=== PATIENT | male | born 1960 | race African-American/Black ===

== ENCOUNTER 2016-12-16 12:37 | Inpatient (IN) | payer MEDICARE, MEDICAID ==
[~2016-12-16] VITALS: Ht 203.2 cm; Wt 86.2 kg
--- NOTE | 2016-12-16 12:41 | Emergency Room Report ---
History of Present Illness General Source: Patient, EMS Present Illness HPI 55-year-old male with possible history of autism, hypertension, asthma per review of other charts, coming from work for reportedly presyncopal episode. EMS stated that patient was hypotensive in the field, with systolic 80, got 250 mL of normal saline and systolic went up to 90s. Patient is currently only oriented to person, unknown other baseline mental status, however patient is following all commands appropriately. Currently only complaining of some lightheadedness otherwise no fever chills nausea abdominal pain chest pain or shortness of breath Allergies: Coded Allergies: No Known Allergies (Unverified , 12/16/16) Patient History Past Medical History: see triage record Past Surgical History: unable to obtain Pertinent Family History: unable to obtain Reviewed Nursing Documentation: PMH: Agreed, PSxH: Agreed Review of Systems All Other Systems: negative except mentioned in HPI Physical Exam Sp02 EP Interpretation: reviewed, normal General Appearance: no apparent distress, alert, non-toxic, other - poor historian, however nad Head: normocephalic, atraumatic Eyes: bilateral eye normal inspection, bilateral eye PERRL, bilateral eye EOMI ENT: normal ENT inspection, normal pharynx, normal voice, moist mucus membranes Neck: normal inspection, full range of motion, supple Respiratory: normal inspection, lungs clear, normal breath sounds, no respiratory distress, no retraction, no wheezing, speaking full sentences, chest symmetrical Cardiovascular #1: normal inspection, regular rate, rhythm, no edema, normal capillary refill Cardiovascular #2: 2+ radial (R), 2+ radial (L) Gastrointestinal: normal inspection, non tender, soft, non-distended, no guarding Genitourinary: no CVA tenderness Musculoskeletal: normal inspection, back normal, normal range of motion, non- tender Neurologic: normal inspection, alert, responsive, tabulating supervisor III-XII nml as tested, motor strength/tone normal, sensory intact, speech normal, other - oritned to person/place,?autism Psychiatric: mood/affect normal, other - poor historian Skin: normal inspection, normal color, no rash, warm/dry, well hydrated, normal turgor Medical Decision Making Diagnostic Impression: Primary Impression: Syncope Additional Impressions: Mild renal insufficiency Rhabdomyolysis ER Course 55-year-old male with pre-syncopal episode/lightheadedness DDX Vasovagal vs. orthostatic / hypovolemic/dehydration vs. cardiac arrhythmia (SVT , Afib) vs. cardiac (, ACS) vs. PE vs. metabolic (hypoglycemia, hypoxia), vs neuro (seizure, CVA, intracranial bleed) Plan: cbc, bmp, ekg, cxr consider IVF At this time, patient is neurologically intact with the exception of being a poor historian. No neurological findings on exam. There was no history of trauma, loss of consciousness, and there are no signs of trauma, will not perform CT head for now ER course: Patient has remained stable during ED stay. No further syncopal episodes Disposition: Patient requires admission to telemetry. Patient requires further workup of syncopal episode, further lab testing, serial troponins, cardiac monitoring D/W hospitalist Patient was signed out to Dr Medel, who has accepted patient for admission. Please note that this Emergency Department Report was dictated using [email or web address] software, occasionally this can lead to erroneous entry secondary to interpretation by the dictation equipment EKG Diagnostic Results EP Interpretation: Yes Rate: normal Rhythm: NSR ST Segments: T wave flattening V5 V6, TWI III, , no WPW, Brugada, QT prolongation ASA given to patient: No Rhythm Strip EP Interpretation: Yes Rate: 75 Rhythm: NSR, no PVCs, no ectopy Chest X-ray CXR: Ordered: Yes 1 view Indication: Syncope EP interpretation: Yes Interpretation: mild pulm vasc congestion Impression: mild CHF Electronically signed by Balaji Burroughs MD Labs Test 12/16/16 13:00 12/16/16 13:55 12/17/16 06:50 White Blood Count 4.8 K/UL (4.8-10.8) 4.7 K/UL (4.8-10.8) Red Blood Count 4.38 M/UL (4.70-6.10) 4.29 M/UL (4.70-6.10) Hemoglobin 14.2 G/DL (14.2-18.0) 14.2 G/DL (14.2-18.0) Hematocrit 41.7 % (42.0-52.0) 40.6 % (42.0-52.0) Mean Corpuscular Volume 95 FL (80-99) 95 FL (80-99) Mean Corpuscular Hemoglobin 32.5 PG (27.0-31.0) 33.2 PG (27.0-31.0) Mean Corpuscular Hemoglobin Concent 34.1 G/DL (32.0-36.0) 35.0 G/DL (32.0-36.0) Red Cell Distribution Width 11.4 % (11.6-14.8) 11.4 % (11.6-14.8) Platelet Count 196 K/UL (150-450) 172 K/UL (150-450) Mean Platelet Volume 6.6 FL (6.5-10.1) 6.3 FL (6.5-10.1) Neutrophils (%) (Auto) 63.3 % (45.0-75.0) 67.3 % (45.0-75.0) Lymphocytes (%) (Auto) 26.5 % (20.0-45.0) 22.8 % (20.0-45.0) Monocytes (%) (Auto) 8.4 % (1.0-10.0) 7.8 % (1.0-10.0) Eosinophils (%) (Auto) 1.1 % (0.0-3.0) 2.0 % (0.0-3.0) Basophils (%) (Auto) 0.6 % (0.0-2.0) 0.2 % (0.0-2.0) Sodium Level 145 MMOL/L (136-145) 143 MMOL/L (136-145) Potassium Level 3.2 MMOL/L (3.5-5.1) 3.6 MMOL/L (3.5-5.1) Chloride Level 110 MMOL/L (98-107) 111 MMOL/L (98-107) Carbon Dioxide Level 28 MMOL/L (21-32) 28 MMOL/L (21-32) Anion Gap 7 mmol/L (5-15) 4 mmol/L (5-15) Blood Urea Nitrogen 26 mg/dL (7-18) 17 mg/dL (7-18) Creatinine 1.8 MG/DL (0.55-1.30) 0.9 MG/DL (0.55-1.30) Estimat Glomerular Filtration Rate 47.9 mL/min (>60) > 60 mL/min (>60) Glucose Level 90 MG/DL (74-106) 101 MG/DL (74-106) Calcium Level 8.8 MG/DL (8.5-10.1) 8.5 MG/DL (8.5-10.1) Total Bilirubin 0.6 MG/DL (0.2-1.0) 0.5 MG/DL (0.2-1.0) Aspartate Amino Transf (AST/SGOT) 23 U/L (15-37) 22 U/L (15-37) Alanine Aminotransferase (ALT/SGPT) 22 U/L (12-78) 25 U/L (12-78) Alkaline Phosphatase 66 U/L (46-116) 67 U/L (46-116) Total Creatine Kinase 643 U/L (26-308) Creatine Kinase MB 1.9 NG/ML (0.0-3.6) Creatine Kinase MB Relative Index 0.2 Troponin I 0.000 ng/mL (0.000-0.056) Total Protein 6.2 G/DL (6.4-8.2) 5.8 G/DL (6.4-8.2) Albumin 3.3 G/DL (3.4-5.0) 2.9 G/DL (3.4-5.0) Globulin 2.9 g/dL 2.9 g/dL Albumin/Globulin Ratio 1.1 (1.0-2.7) 1.0 (1.0-2.7) Salicylates Level < 1 mg/dL (10-30) Acetaminophen Level < 10 MCG/ML (10-30) Serum Alcohol < 3 mg/dL Urine Color Brown Urine Appearance Slightly cloudy Urine pH 5 (4.5-8.0) Urine Specific [place] 1.020 (1.005-1.035) Urine Protein 3+ (NEGATIVE) Urine Glucose (UA) Negative (NEGATIVE) Urine Ketones Negative (NEGATIVE) Urine Occult Blood 2+ (NEGATIVE) Urine Nitrite Negative (NEGATIVE) Urine Bilirubin 1+ (NEGATIVE) Urine Ictotest Negative Urine Urobilinogen 1 MG/DL (0.0-1.0) Urine Leukocyte Esterase 1+ (NEGATIVE) Urine RBC 2-4 /HPF (0 - 0) Urine WBC 2-4 /HPF (0 - 0) Urine Squamous Epithelial Cells Few /LPF (NONE/OCC) Urine Amorphous Sediment Few /LPF (NONE) Urine Bacteria Few /HPF (NONE) Urine Opiates Screen Negative (NEGATIVE) Urine Barbiturates Screen Negative (NEGATIVE) Phencyclidine (PCP) Screen Negative (NEGATIVE) Urine Amphetamines Screen Negative (NEGATIVE) Urine Benzodiazepines Screen Negative (NEGATIVE) Urine Cocaine Screen Negative (NEGATIVE) Urine Marijuana (THC) Screen Negative (NEGATIVE) Prothrombin Time 10.0 SEC (9.30-11.50) Prothromb Time International Ratio 1.0 (0.9-1.1) Activated Partial Thromboplast Time 28 SEC (23-33) Triglycerides Level 27 MG/DL (0-200) Cholesterol Level 93 MG/DL (< 200) LDL Cholesterol 40 mg/dL (<100) HDL Cholesterol 55 MG/DL (40-60) Cholesterol/HDL Ratio 1.7 (3.3-4.4) Thyroid Stimulating Hormone (TSH) 0.558 uiU/mL (0.360-3.740) Balaji Burroughs M.D. Dec 16, 2016 12:41
[2016-12-16 13:26] LABS: BASOPHILS % (AUTO) 0.6 % (0.0-2.0); EOSINOPHILS % (AUTO) 1.1 % (0.0-3.0); LYMPHOCYTES % (AUTO) 26.5 % (20.0-45.0); MEAN CORPUSCULAR HEMOGLOBIN 32.5 PG (27.0-31.0); MEAN CORPUSCULAR HGB CONC 34.1 G/DL (32.0-36.0); MEAN CORPUSCULAR VOLUME 95 FL (80-99); MEAN PLATELET VOLUME 6.6 FL (6.5-10.1); MONOCYTES % (AUTO) 8.4 % (1.0-10.0); NEUTROPHILS % (AUTO) 63.3 % (45.0-75.0); PLATELET COUNT 196 K/UL (150-450); RED BLOOD COUNT 4.38 M/UL (4.70-6.10); RED CELL DISTRIBUTION WIDTH 11.4 % (11.6-14.8); WHITE BLOOD COUNT 4.8 K/UL (4.8-10.8)
[2016-12-16 13:27] VITALS: BP 97/63
[2016-12-16 13:39] LABS: ALANINE AMINOTRANSFERASE 22 U/L (12-78); ALBUMIN/GLOBULIN RATIO 1.1 (1.0-2.7); ANION GAP 7 mmol/L (5-15); ASPARTATE AMINO TRANSFERASE 23 U/L (15-37); CALCIUM 8.8 MG/DL (8.5-10.1); CARBON DIOXIDE 28 MMOL/L (21-32); CHLORIDE 110 MMOL/L (98-107); CKMB 1.9 NG/ML (0.0-3.6); CREATININE 1.8 MG/DL (0.55-1.30); GLOMERULAR FILTRATION RATE 47.9 mL/min (>60); POTASSIUM 3.2 MMOL/L (3.5-5.1); SODIUM 145 MMOL/L (136-145); TOTAL PROTEIN 6.2 G/DL (6.4-8.2)
[2016-12-16 13:40] LABS: ACETAMINOPHEN < 10 MCG/ML (10-30); ALCOHOL < 3 mg/dL
[2016-12-16] MEDS ORDERED: LORazepam Inj 2mg/ml 1ml IV ONE (13:45)
[2016-12-16] MEDS ORDERED: Mylanta II UD 30ml ORAL PRN (14:15)
[2016-12-16] MEDS ORDERED: Albuterol/Ipratropium 3ml neb HHN PRN (14:15)
[2016-12-16] MEDS ORDERED: Nitroglycerin Subl 0.4mg tab SL PRN (14:15)
[2016-12-16] MEDS ORDERED: LORazepam Inj 2mg/ml 1ml IV PRN (14:15)
[2016-12-16] MEDS ORDERED: Morphine Sulfate 2mg/ml Inj IVP PRN (14:15)
[2016-12-16] MEDS ORDERED: Miralax 17gm pkt ORAL PRN (14:15)
[2016-12-16 14:38] LABS: APPEARANCE,URINE SLIGHTLY CLOUDY; KETONES,URINE NEGATIVE (NEGATIVE); LEUKOCYTE ESTERASE ,URINE 1+ (NEGATIVE); NITRITE,URINE NEGATIVE (NEGATIVE); PH,URINE 5 (4.5-8.0); PROTEIN,URINE 3+ (NEGATIVE); UROBILINOGEN,URINE 1 MG/DL (0.0-1.0)
--- NOTE | 2016-12-16 14:38 | Diagnostic Imaging Report ---
Indication: PAIN Technique: One view of the chest Comparison: none Findings: Lungs and pleural spaces are clear. Heart size is upper limits normal. There is some left basilar atelectasis Impression: No acute process
[2016-12-16] MEDS ORDERED: BENAZEPRIL HCL10 MG ORAL (14:46)
[2016-12-16] MEDS ORDERED: LIPITOR80 MG ORAL (14:46)
[2016-12-16] MEDS ORDERED: OXYTROL1 EACH TD (14:46)
[2016-12-16] MEDS ORDERED: AMLODIPINE BES2.5 MG ORAL (14:46)
[2016-12-16] MEDS ORDERED: TAMSULOSIN HCL0.4 MG ORAL (14:46)
[2016-12-16] MEDS ORDERED: ASPIR 8181 MG ORAL (14:46)
[2016-12-16 14:54] LABS: AMORPHOUS SEDIMENT,UR FEW /LPF; BACTERIA,URINE FEW /HPF; ICTOTEST NEGATIVE; SQUAMOUS EPITHELIAL CELL,UR FEW /LPF (NONE/OCC)
[2016-12-16 15:09] VITALS: BP 108/71
[2016-12-16 18:08] VITALS: BP 113/82
[2016-12-16] MEDS ORDERED: PROSCAR5 MG ORAL (19:00)
[2016-12-16 19:26] VITALS: BP 118/75
[2016-12-16 20:00] VITALS: BP 126/76
[2016-12-16] MEDS: Heparin 5000 units/ml inj SUBQ SCH (20:57)
[2016-12-16] MEDS: Tamsulosin 0.4mg cap ORAL SCH (22:12)
[2016-12-17] VITALS: BP 127/80
[2016-12-17 04:00] VITALS: BP 136/87
[2016-12-17 08:00] VITALS: BP 125/82
[2016-12-17 08:14] LABS: BASOPHILS % (AUTO) 0.2 % (0.0-2.0); LYMPHOCYTES % (AUTO) 22.8 % (20.0-45.0); MEAN CORPUSCULAR HEMOGLOBIN 33.2 PG (27.0-31.0); MEAN CORPUSCULAR VOLUME 95 FL (80-99); MEAN PLATELET VOLUME 6.3 FL (6.5-10.1); MONOCYTES % (AUTO) 7.8 % (1.0-10.0); NEUTROPHILS % (AUTO) 67.3 % (45.0-75.0); PLATELET COUNT 172 K/UL (150-450); RED BLOOD COUNT 4.29 M/UL (4.70-6.10); RED CELL DISTRIBUTION WIDTH 11.4 % (11.6-14.8); WHITE BLOOD COUNT 4.7 K/UL (4.8-10.8)
[2016-12-17 08:36] LABS: ALANINE AMINOTRANSFERASE 25 U/L (12-78); ANION GAP 4 mmol/L (5-15); ASPARTATE AMINO TRANSFERASE 22 U/L (15-37); CALCIUM 8.5 MG/DL (8.5-10.1); CARBON DIOXIDE 28 MMOL/L (21-32); CHLORIDE 111 MMOL/L (98-107); CHOLESTEROL 93 MG/DL (< 200); CHOLESTEROL/HDL RATIO 1.7 (3.3-4.4); CREATININE 0.9 MG/DL (0.55-1.30); GLOMERULAR FILTRATION RATE > 60 mL/min (>60); POTASSIUM 3.6 MMOL/L (3.5-5.1); SODIUM 143 MMOL/L (136-145); THYROID STIMULATING HORMONE 0.558 uiU/mL (0.360-3.740); TOTAL PROTEIN 5.8 G/DL (6.4-8.2)
[2016-12-17 11:46] VITALS: BP 128/95
[2016-12-17] MEDS: Aspirin EC 81mg tab ORAL SCH (11:48)
[2016-12-17] MEDS: Heparin 5000 units/ml inj SUBQ SCH ×2 (11:51→20:40)
--- NOTE | 2016-12-17 14:58 | Neurology Progress Note ---
Objective Physical Exam Last Vital Signs Date Time Temp Pulse Resp B/P (MAP) Pulse Ox O2 Delivery O2 Flow Rate FiO2 12/17/16 11:46 97.5 69 18 128/95 97 Room Air Laboratory Tests Test 12/17/16 06:50 White Blood Count 4.7 K/UL (4.8-10.8) L Red Blood Count 4.29 M/UL (4.70-6.10) L Hemoglobin 14.2 G/DL (14.2-18.0) Hematocrit 40.6 % (42.0-52.0) L Mean Corpuscular Volume 95 FL (80-99) Mean Corpuscular Hemoglobin 33.2 PG (27.0-31.0) H Mean Corpuscular Hemoglobin Concent 35.0 G/DL (32.0-36.0) Red Cell Distribution Width 11.4 % (11.6-14.8) L Platelet Count 172 K/UL (150-450) Mean Platelet Volume 6.3 FL (6.5-10.1) L Neutrophils (%) (Auto) 67.3 % (45.0-75.0) Lymphocytes (%) (Auto) 22.8 % (20.0-45.0) Monocytes (%) (Auto) 7.8 % (1.0-10.0) Eosinophils (%) (Auto) 2.0 % (0.0-3.0) Basophils (%) (Auto) 0.2 % (0.0-2.0) Prothrombin Time 10.0 SEC (9.30-11.50) Prothromb Time International Ratio 1.0 (0.9-1.1) Activated Partial Thromboplast Time 28 SEC (23-33) Sodium Level 143 MMOL/L (136-145) Potassium Level 3.6 MMOL/L (3.5-5.1) Chloride Level 111 MMOL/L (98-107) H Carbon Dioxide Level 28 MMOL/L (21-32) Anion Gap 4 mmol/L (5-15) L Blood Urea Nitrogen 17 mg/dL (7-18) Creatinine 0.9 MG/DL (0.55-1.30) Estimat Glomerular Filtration Rate > 60 mL/min (>60) Glucose Level 101 MG/DL (74-106) Calcium Level 8.5 MG/DL (8.5-10.1) Total Bilirubin 0.5 MG/DL (0.2-1.0) Aspartate Amino Transf (AST/SGOT) 22 U/L (15-37) Alanine Aminotransferase (ALT/SGPT) 25 U/L (12-78) Alkaline Phosphatase 67 U/L (46-116) Total Protein 5.8 G/DL (6.4-8.2) L Albumin 2.9 G/DL (3.4-5.0) L Globulin 2.9 g/dL Albumin/Globulin Ratio 1.0 (1.0-2.7) Triglycerides Level 27 MG/DL (0-200) Cholesterol Level 93 MG/DL (< 200) LDL Cholesterol 40 mg/dL (<100) HDL Cholesterol 55 MG/DL (40-60) Cholesterol/HDL Ratio 1.7 (3.3-4.4) L Thyroid Stimulating Hormone (TSH) 0.558 uiU/mL (0.360-3.740) Impression/Recommendations Recommendations # [id number] MARK HILLS Dec 17, 2016 14:57
--- NOTE | 2016-12-17 15:28 | Consultation ---
Consult Note Assessment/Plan Renal consult dictated # [id number] HOWARD AMBROCIO Dec 17, 2016 15:28
[2016-12-17 15:32] VITALS: BP 132/93
[2016-12-17 20:29] VITALS: BP 143/86
--- NOTE | 2016-12-17 20:34 | Cardiology Progress Note ---
Assessment/Plan Assessment/Plan [id number] Objective Last 24 Hour Vital Signs Date Time Temp Pulse Resp B/P (MAP) Pulse Ox O2 Delivery O2 Flow Rate FiO2 12/17/16 20:29 97.9 63 20 143/86 97 Room Air 12/17/16 16:00 67 12/17/16 15:32 97.2 67 18 132/93 96 Room Air 12/17/16 12:00 64 12/17/16 11:46 97.5 69 18 128/95 97 Room Air 12/17/16 08:00 97.7 80 18 125/82 95 Room Air 12/17/16 08:00 82 12/17/16 04:00 74 12/17/16 04:00 97.5 76 20 136/87 96 Room Air 12/17/16 00:00 97.3 68 20 127/80 96 Room Air 12/17/16 00:00 68 Intake and Output 12/17/16 12/18/16 19:00 07:00 Intake Total 2300 ml Output Total 2050 ml Balance 250 ml Intake Oral 1400 ml Other 900 ml Output Urine Total 2050 ml Laboratory Tests Test 12/17/16 06:50 White Blood Count 4.7 K/UL (4.8-10.8) L Red Blood Count 4.29 M/UL (4.70-6.10) L Hemoglobin 14.2 G/DL (14.2-18.0) Hematocrit 40.6 % (42.0-52.0) L Mean Corpuscular Volume 95 FL (80-99) Mean Corpuscular Hemoglobin 33.2 PG (27.0-31.0) H Mean Corpuscular Hemoglobin Concent 35.0 G/DL (32.0-36.0) Red Cell Distribution Width 11.4 % (11.6-14.8) L Platelet Count 172 K/UL (150-450) Mean Platelet Volume 6.3 FL (6.5-10.1) L Neutrophils (%) (Auto) 67.3 % (45.0-75.0) Lymphocytes (%) (Auto) 22.8 % (20.0-45.0) Monocytes (%) (Auto) 7.8 % (1.0-10.0) Eosinophils (%) (Auto) 2.0 % (0.0-3.0) Basophils (%) (Auto) 0.2 % (0.0-2.0) Prothrombin Time 10.0 SEC (9.30-11.50) Prothromb Time International Ratio 1.0 (0.9-1.1) Activated Partial Thromboplast Time 28 SEC (23-33) Sodium Level 143 MMOL/L (136-145) Potassium Level 3.6 MMOL/L (3.5-5.1) Chloride Level 111 MMOL/L (98-107) H Carbon Dioxide Level 28 MMOL/L (21-32) Anion Gap 4 mmol/L (5-15) L Blood Urea Nitrogen 17 mg/dL (7-18) Creatinine 0.9 MG/DL (0.55-1.30) Estimat Glomerular Filtration Rate > 60 mL/min (>60) Glucose Level 101 MG/DL (74-106) Calcium Level 8.5 MG/DL (8.5-10.1) Total Bilirubin 0.5 MG/DL (0.2-1.0) Aspartate Amino Transf (AST/SGOT) 22 U/L (15-37) Alanine Aminotransferase (ALT/SGPT) 25 U/L (12-78) Alkaline Phosphatase 67 U/L (46-116) Total Protein 5.8 G/DL (6.4-8.2) L Albumin 2.9 G/DL (3.4-5.0) L Globulin 2.9 g/dL Albumin/Globulin Ratio 1.0 (1.0-2.7) Triglycerides Level 27 MG/DL (0-200) Cholesterol Level 93 MG/DL (< 200) LDL Cholesterol 40 mg/dL (<100) HDL Cholesterol 55 MG/DL (40-60) Cholesterol/HDL Ratio 1.7 (3.3-4.4) L Thyroid Stimulating Hormone (TSH) 0.558 uiU/mL (0.360-3.740) MARI BENITEZ Dec 17, 2016 20:34
[2016-12-17] MEDS: Tamsulosin 0.4mg cap ORAL SCH (20:40)
[2016-12-17] MEDS ORDERED: Morphine Sulfate 4mg/ml Inj IVP PRN (20:45)
--- NOTE | 2016-12-17 21:00 | Consultation ---
DATE OF CONSULTATION: 12/17/2016 NEUROLOGICAL CONSULTATION CONSULTING PHYSICIAN: Carl Balderas M.D. ATTENDING PHYSICIAN: Binh Hammond M.D. REQUESTING PHYSICIAN: Binh Hammond M.D. REASON FOR CONSULTATION: This is a 55-year-old man who is seen in neurological consultation to evaluate transient episode of unresponsiveness. HISTORY OF PRESENT ILLNESS: According to the patient, but predominantly from his family members who were present during this examination, noted that he was at his work place where he had an episode of losing consciousness and falling down. There was no evidence of convulsion. No tongue biting. No urine or bowel incontinence. Paramedics were called to the scene, found him hypotensive with systolic around 80s, he was stabilized with normal saline transfusion, brought to emergency room where he was oriented only to the person, and had no recollection of event. He was complaining of some lightheadedness. According to the family, this occurred on one occasion, never had episodes of loss of consciousness. No seizures. His laboratory studies included normal CBC, normal coagulation panel. Urinalysis, 2+ blood, 3+ protein. Toxicology panel was negative. Chemistry panel with elevated BUN of 26, creatinine 1.8. CPK 643. Albumin 3.3. Normal TSH and lipid panel. His imaging studies included chest x-ray with no evidence of acute process. His carotid duplex, no hemodynamically significant lesions detected. There were no changes in level of consciousness since admission until present time. PAST MEDICAL HISTORY: The patient has history of hypertension and bronchial asthma. He is autistic and has cognitive deficiency. CURRENT MEDICATIONS: Treatment prior to this admission included amlodipine, aspirin, atorvastatin, benazepril, Proscar, oxybutynin, and tamsulosin. ALLERGIES: None reported. SOCIAL HISTORY: Lives with his nephew. He attended a workshop for rehabilitation. No alcohol. No drug abuse. Nonsmoker. The patient has good appetite and has normal balance. FAMILY HISTORY: Unavailable. REVIEW OF SYMPTOMS: The patient indicates he is feeling well. He has no complaint. PHYSICAL EXAMINATION: GENERAL: Well-developed and well-nourished man, not in acute distress, lying comfortably in bed listening to music. His aunt at bedside. VITAL SIGNS: His vital signs are now stable. He is afebrile. Blood pressure 128/95. HEENT: Head normocephalic. There is no evidence of trauma. Eyes, ears, nose, and throat are clear. NECK: Supple. No meningeal signs. MUSCULOSKELETAL: Examination unremarkable. There are no deformities. Peripheral pulses 1+, symmetric. MENTAL STATUS: He is alert and oriented to his name and age, but not place or time. Unable to provide with medical history, but he is able to follow simple commands. CRANIAL NERVE II: Pupils both responding to light and accommodation. Extraocular movement intact. No nystagmus. CRANIAL NERVE V: Normal corneal responses. CRANIAL NERVE VII: No facial asymmetry. CRANIAL NERVE VIII: Grossly normal hearing. CRANIAL NERVES IX THROUGH XII: Within normal limits. MOTOR EXAMINATION: Normal muscle tone. Strength 5/5 in all extremities. No involuntary movement. Deep tendon reflexes 1+, symmetric with downgoing toes on both sides. SENSORY EXAMINATION: Normal to pinprick and light touch. Gait is stable. IMPRESSION: 1. History of syncope, vasovagal type. No evidence of seizure activity. No evidence of transient ischemic attack. 2. Hypertension. 3. Hyperlipidemia. 4. Autism, with significant cognitive loss. RECOMMENDATION: 1. The patient encouraged to have proper p.o. hydration. 2. Continue with physical conditioning. 3. Continue with aspirin and statins. 4. Recheck orthostatic blood pressure. Thank you for allowing me to see this interesting patient in neurological consultation. Carl Balderas M.D. DR: Case JOB#: [id number] CC:
--- NOTE | 2016-12-17 21:10 | Cardiology Report ---
APPROVED REPORT EXAM: Two-dimensional and M-mode echocardiogram with Doppler and color Doppler. INDICATION Syncope M-Mode DIMENSIONS IVSd1.4 (0.7-1.1cm)Left Atrium (MM)2.9 (1.6-4.0cm) LVDd4.5 (3.5-5.6cm)Aortic Root3.5 (2.0-3.7cm) PWd0.9 (0.7-1.1cm) IVSs2.1 cm LVDs2.9 (2.5-4.0cm) PWs1.5 cm Normal left ventricular chamber size, systolic function and wall motion. Left ventricular ejection fraction estimated to be 55-60 %. Mild to moderate left ventricular hypertrophy. Anterior Echo-free space, may be due to pericardial fat or effusion. All other cardiac chamber sizes are within normal limits. Focal aortic valve sclerosis with adequate cusp excursion. Thickened mitral valve leaflets with normal excursion. Mitral annulus and aortic root calcification. Normal pulmonic valve structure. Normal tricuspid valve structure. IVC at normal size with physiologic collapse. A color flow and spectral Doppler study was performed and revealed: Trace mitral regurgitation. Mitral diastolic velocities suggest reduced left ventricular relaxation c/w mild LV diastolic dysfunction (Grade I ). Trace to mild tricuspid regurgitation. Tricuspid systolic velocities suggests peak right ventricular systolic pressure of 30 mmHg. Mild pulmonic regurgitation present.
[2016-12-18 00:22] VITALS: BP 150/90
[2016-12-18 04:00] VITALS: BP 145/88
--- NOTE | 2016-12-18 07:40 | Cardiology Progress Note ---
Assessment/Plan Assessment/Plan syncope hypotension hs of htn autism bp nwo elevated now off ivf tele reviewed neg orthostatic vital to be documented priro to dc home bp med as per dr christy echo reviewed personally good lv function no evidence for sig structural heart disease ok to dc home if not orthostatic Subjective Cardiovascular: Denies: chest pain, lightheadedness, palpitations Respiratory: Denies: shortness of breath Gastrointestinal/Abdominal: Denies: abdominal pain Genitourinary: Denies: burning Objective Last 24 Hour Vital Signs Date Time Temp Pulse Resp B/P (MAP) Pulse Ox O2 Delivery O2 Flow Rate FiO2 12/18/16 04:00 61 12/18/16 04:00 97.9 63 18 145/88 98 Room Air 12/18/16 00:22 98.0 61 19 150/90 99 Room Air 12/18/16 00:00 62 12/17/16 20:29 97.9 63 20 143/86 97 Room Air 12/17/16 20:00 64 12/17/16 16:00 67 12/17/16 15:32 97.2 67 18 132/93 96 Room Air 12/17/16 12:00 64 12/17/16 11:46 97.5 69 18 128/95 97 Room Air 12/17/16 08:00 97.7 80 18 125/82 95 Room Air 12/17/16 08:00 82 General Appearance: no apparent distress, alert Neck: supple Cardiovascular: normal rate, regular rhythm Respiratory/Chest: lungs clear, normal breath sounds Abdomen: normal bowel sounds, non tender, soft Extremities: no swelling MARI BENITEZ Dec 18, 2016 07:40
[2016-12-18 08:30] VITALS: BP 121/85
--- NOTE | 2016-12-18 08:31 | History and Physical Report ---
DATE OF ADMISSION: 12/16/2016 CHIEF COMPLAINT: The patient passed out at work. HISTORY OF PRESENT ILLNESS: This is a 55-year-old male with history of autism, who has been my patient for many years now. The patient has also history of hypertension, asthma, and BPH. The patient was attending a training center where he passed out on the day of admission. The details were somewhat sketchy since the patient is not able to provide much history, but he does say that he was somewhat dizzy and when the paramedics came, his systolic blood pressure was in the 80s. He received normal saline 200 mL IV and blood pressure went up to 90s. The patient was seen in the emergency room here at [facility] and was found to have also acute renal failure with creatinine of 1.8. PAST MEDICAL HISTORY: History of BPH. MEDICATIONS: Reviewed and reconciled in the EMR. ALLERGIES: No known drug allergies. SOCIAL HISTORY: The patient lives at home. He has a very supportive family. No history of smoking or alcohol abuse. REVIEW OF SYSTEMS: Noncontributory except above. PHYSICAL EXAMINATION: GENERAL: The patient is a pleasant male, in no acute distress. VITAL SIGNS: Blood pressure is 128/95, pulse 69, temperature 97.5, and respiratory rate 18. HEENT: [place] conjunctivae. Anicteric sclerae. NECK: Supple. LUNGS: Clear to auscultation. HEART: S1 and S2 without murmurs or rubs. ABDOMEN: Soft and nontender. EXTREMITIES: No cyanosis or edema. LABORATORY FINDINGS: The CBC as of today shows WBC of 4.7, hematocrit is 40.6, hemoglobin is 14.2, and platelets 172,000. The chemistry panel as of yesterday showed a serum sodium of 145, potassium 3.2, chloride 110, CO2 of 28, BUN 26, creatinine 1.8, and glucose of 90. Today, the BUN is 17 with creatinine of 0.9 and potassium is 3.6. UA, which was done yesterday shows 3+ protein and 2 to 4 RBCs per high power field. ASSESSMENT: This is a 55-year-old male who was admitted with diagnosis of syncope. He was hypotensive on the field and he said that he was not drinking a lot, so likely this was syncope as a result of volume depletion and indeed he has had also acute renal failure, which improved with IV fluids again indicating that the patient was volume depleted. PLAN: The patient will have an echocardiogram. We will continue with IV fluids for now. The patient will be seen by senior architectural designer Dr. Scott. Dr. Balderas saw the patient in Neurology consultation. If cardiac workup is negative, we will be discharging the patient home tomorrow. Binh Hammond M.D. DR: PHOEBE JOB#: [id number] CC: RUDY
--- NOTE | 2016-12-18 08:45 | Consultation ---
DATE OF CONSULTATION: 12/17/2016 CARDIOLOGY CONSULTATION REFERRING PHYSICIAN: Binh Hammond M.D. REASON FOR REFERRAL: Syncope. HISTORY OF PRESENT ILLNESS: This is an elderly gentleman, who presented to the hospital because of syncope. The patient is somewhat of a poor historian. Therefore, information is obtained from review of the records. 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 Apparently, had event of syncope and he got up apparently walked out and sat down. He denied any neck or back pain. No shortness of breath. No chest pain. No trauma was noted. The patient was hypotensive. Heart rate was normal. A 12-lead EKG shows sinus, assisted to the gurney laid flat, IV was started, and 400 mL of normal saline was administered. He had a backpack which he had left, and when the patient was found he had initially blood pressure 76/50 and subsequently 84/61. Heart rate was documented to be in between 74 and 91. His electrocardiogram appeared to show some normal sinus rhythm, some nonspecific T-wave changes and delay in R-wave progression. The patient denies any chest pain or pressure. No PND. No orthopnea. Occasionally, he does get dizzy or lightheaded when he sits up or stands up. There is no PND. Uses two pillows at home to sleep with and there is no palpitations. He denies any prior heart problems according to himself and he denies any prior heart problems. He does have a history of autism, history of hypertension, and asthma. No diabetes. No heart attack. No cancer. No stroke. No hepatitis. No tuberculosis. No asthma or emphysema. No ulcers. No kidney problems, liver problems, thyroid problems, anemia, arthritis, HIV or AIDS, blood clots, or prostate problems. He is not allergic to any medications. SOCIAL HISTORY: He never smoked, drank, or used drugs. REVIEW OF SYSTEMS: GASTROINTESTINAL: He denies. GENITOURINARY: He denies. PULMONARY: He denies. CONSTITUTIONAL: He denies. NEUROLOGIC: He denies. PHYSICAL EXAMINATION: GENERAL: Shows to be a middle-aged gentleman, in no apparent respiratory distress. NECK: Supple. No jugular venous distention. VITAL SIGNS: His blood pressure initially in the 70s as mentioned was found by the paramedics was increased up to 143/86 subsequent most recent blood pressure, temperature of 97.9 degrees, and heart rate between 63 and 80. LUNGS: Clear to auscultation and percussion. CARDIAC: S1 is normal. S2 is normal. Regular rate and rhythm. No heaves, thrills, or gallops noted. ABDOMEN: Soft and nontender. Positive bowel sounds. EXTREMITIES: There is no clubbing, cyanosis, or edema. NEUROLOGIC: He is awake, alert, responsive, in no apparent distress. LABORATORY AND DIAGNOSTIC DATA: EKG shows sinus rhythm, no VT, no SVT is noted. An echocardiogram has shown normal left ventricular systolic function. EKG performed in the hospital basically shows some nonspecific T-wave changes still. Carotid duplex study showed no significant stenosis of the carotid arteries. ASSESSMENT AND PLAN: 1. Syncope. 2. Hypotension. 3. Autism. 4. History of asthma. Dr. Hammond, this patient was seen in cardiac consultation. The patient's blood pressure significantly improved since being found by the paramedics with administration of IV fluids. He is on blood pressure medications, which I wonder if is likely contributing to the patient's syncope, not sure if he by any chance takes , but certainly a possibility. IV hydration has been provided to the patient with significant improved blood pressure. We would consider decreasing the dose of the blood pressure medications if needed at all and be tolerant of high blood pressure. Davis Scott M.D. DR: TAYLOR JOB#: [id number] CC:
[2016-12-18] MEDS: Aspirin EC 81mg tab ORAL SCH (10:10)
[2016-12-18] MEDS: Heparin 5000 units/ml inj SUBQ SCH (10:12)
[2016-12-18 11:59] VITALS: BP 139/96
--- NOTE | 2016-12-18 12:20 | Consultation ---
Consult Note Assessment/Plan Dc dictated # [id number] HOWARD AMBROCIO Dec 18, 2016 12:20
--- NOTE | 2016-12-18 15:19 | Cardiology Report ---
APPROVED REPORT EKG Measurement Heart [id number] Normal sinus rhythm Left anterior fascicular block Abnormal ECG
--- NOTE | 2016-12-18 16:02 | Cardiology Report ---
APPROVED REPORT EKG Measurement Heart [id number] Normal sinus rhythm Left axis deviation Possible Lateral infarct, age undetermined Abnormal ECG
--- NOTE | 2016-12-18 23:32 | Diagnostic Imaging Report ---
APPROVED REPORT CPT Code: 22048 Vascular Symptoms Syncope CAROTID (BILATERAL) - Imaging reveals no significant plaque within the right and left extracranial carotid arteries. The Doppler spectral flow analysis is within normal limits throughout the extracranial carotid arteries bilaterally. VERTEBRAL- The vertebral arteries are within normal limits.
--- NOTE | 2016-12-19 06:00 | Discharge Summary ---
DATE OF ADMISSION: 12/16/2016 DATE OF DISCHARGE: 12/18/2016 CHIEF COMPLAINT: The patient passed out at work. 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 The patient was found to be hypotensive on the field. HOSPITAL COURSE: The patient was found to have also elevated BUN and creatinine to 26 and 1.8. The patient was diagnosed of volume depletion and it was felt that his syncope was a result of volume depletion. With IV fluids, his BUN and creatinine improved to 17 and 0.9. On the following day, the patient was completely fine and also an echocardiogram showed LVH otherwise unremarkable. The patient was seen by Dr. Balderas, who did not think the patient had a neurological event. The patient was seen by Dr. Scott, who cleared the patient for discharge. DISCHARGE DIAGNOSES: 1. Syncope as a result of volume depletion and dehydration. 2. Acute renal failure as a result of volume depletion. 3. History of left ventricular hypertrophy. 4. History of autism. 5. History of benign prostatic hypertrophy. DISCHARGE MEDICATIONS: Please refer to discharge medication list. DIET: Regular. Binh Hammond M.D. DR: Minna JOB#: [id number] CC:
== END 2016-12-18 13:30 | disposition home or self-care (01) | DRG 641 ==
LOC: EDBD 12:37 → EMR 13:30 → EDBD 13:58 → 2E 13:58 → EDBEDREQ 16:38
DX: E86.0 Dehydration (principal); N17.9 Acute kidney failure, unspecified; M62.82 Rhabdomyolysis; I95.9 Hypotension, unspecified; F84.0 Autistic disorder; I10 Essential (primary) hypertension; N40.0 Benign prostatic hyperplasia without lower urinary tract symptoms; F79 Unspecified intellectual disabilities; E78.5 Hyperlipidemia, unspecified
CPT/HCPCS: 36415; 71010; 80053; 80061; 80307; 80329; 81003; 82550; 82553; 84443; 84484; 85025; 85610; 85730; 93005; 93306; 93880; 99285

== ENCOUNTER → 2018-11-04 | Outpatient (CLI) | payer MEDICARE, MEDICAID ==
[~2018-11-04] MED LIST: AMLODIPINE BES2.5 MG ORAL; ASPIR 8181 MG ORAL; BENAZEPRIL HCL10 MG ORAL; LIPITOR80 MG ORAL; OXYTROL1 EACH TD; PROSCAR5 MG ORAL; TAMSULOSIN HCL0.4 MG ORAL
[2018-11-04 10:40] LABS: HEMATOCRIT 45.5 % (42.0-52.0); HEMOGLOBIN 15.3 G/DL (14.2-18.0); MEAN CORPUSCULAR VOLUME 94 FL (80-99); PLATELET COUNT 197 K/UL (150-450); RED BLOOD COUNT 4.86 M/UL (4.70-6.10); RED CELL DISTRIBUTION WIDTH 11.4 % (11.6-14.8); WHITE BLOOD COUNT 3.3 K/UL (4.8-10.8)
[2018-11-04 10:53] LABS: INR 0.9 (0.9-1.1)
[2018-11-04 10:57] LABS: ANION GAP 7 mmol/L (5-15); BLOOD UREA NITROGEN 17 mg/dL (7-18); CALCIUM 9.2 MG/DL (8.5-10.1); CARBON DIOXIDE 29 MMOL/L (21-32); CHLORIDE 111 MMOL/L (98-107); POTASSIUM 3.9 MMOL/L (3.5-5.1); SODIUM 147 MMOL/L (136-145)
--- NOTE | 2018-11-04 12:13 | Diagnostic Imaging Report ---
Indication: Cough Technique: 2 views of the chest Comparison: 12/16/2016 Findings: The lungs and pleural spaces are clear. The heart size is normal. The aorta is ectatic. There are degenerative changes of the thoracic spine Impression: No acute process
--- NOTE | 2018-11-04 12:42 | Diagnostic Imaging Report ---
Clinical Indication: Hematuria Technique: No oral contrast, per protocol. Precontrast spiral acquisitions obtained through the abdomen and pelvis. IV administration nonionic contrast. Multiphasic spiral acquisitions obtained through the abdomen and pelvis. Multiplanar reconstructions were generated. Total dose length product 3089 mGycm. CTDIvol(s) 16, 64, 16, 16, 16 mGy. Dose reduction achieved using automated exposure control Comparison: 08/12/2008 Findings: Again demonstrated is a cyst measuring 6.5 cm diameter coming off the lower pole of the left kidney. This demonstrates one or more daughter cysts at its inferior margin. Subcentimeter low-attenuation lesions are also seen in the left kidney. No other renal abnormality demonstrated. No renal or ureteral calculi. The renal collecting systems are normal. The ureters are normal. The bladder is unremarkable. The prostate is enlarged, measuring 6 cm transverse diameter, and indents the bladder floor The liver demonstrates a cyst in segment 2 as well as multiple subcentimeter low-attenuation lesions which are too small to characterize. The gallbladder, bile ducts, pancreas, spleen are all unremarkable. 2.5 cm right adrenal mass is unchanged. A 1 cm left adrenal nodule is likewise unchanged. No retroperitoneal or mesenteric mass or adenopathy. No pelvic mass or adenopathy. The included lung bases demonstrate slight hazy groundglass opacity, probably due to dependent atelectasis. The heart is mildly enlarged. The bones are unremarkable. Impression: No definite urinary tract abnormality to explain stated clinical history of hematuria demonstrated. Large left lower pole renal cyst, also previously demonstrated. Subcentimeter low-attenuation renal lesions, too small to characterize, most likely benign cortical cyst Enlarged prostate which indents the bladder floor Left lobe liver cyst. Subcentimeter low-attenuation liver lesions which are too small to characterize, most likely benign simple cysts or bile hamartomas Unchanged bilateral adrenal masses, presumably benign adenomas Cardiomegaly Hazy pulmonary parenchymal groundglass opacity, may reflect compressive atelectatic changes or mild pulmonary edema, among other possibilities The CT scanner at [facility] is accredited by the [employer] and the scans are performed using protocols designed to limit radiation exposure to as low as reasonably achievable to attain images of sufficient resolution adequate for diagnostic evaluation.
== END | disposition home or self-care (01) ==
LOC: CAT 10:10
DX: R05 Cough (principal); R31.9 Hematuria, unspecified; I51.7 Cardiomegaly; K76.89 Other specified diseases of liver; N40.0 Benign prostatic hyperplasia without lower urinary tract symptoms
CPT/HCPCS: 36415; 71046; 74178; 80048; 85007; 85025; 85610; 85730; 93005; Q9967